=== PATIENT | male | born 2000 | race Caucasian/White ===

== ENCOUNTER → 2020-04-17 | Emergency (ER) | payer OTHER ==
--- NOTE | 2020-04-17 15:35 | RAD ---
TWO VIEWS RIGHT HUMERUS: Date: 04-17-2020 Comparison: None History: Injury, trauma, pain. FINDINGS: There is an obliquely oriented fracture involving the mid shaft of the right humerus. The distal frac ture fragment demonstrates medial displacement by approximately 1.5 cm. There is posterior angulation . There is approximately 2 cm of overriding. IMPRESSION: Obliquely oriented displaced and angulated fracture involving the mid shaft of the right humerus. POS: [facility]
--- NOTE | 2020-04-17 15:37 | RAD ---
FRONTAL RADIOGRAPH RIGHT HUMERUS: Date: 04-17-2020 Time: 4:45 a.m. History: Status post reduction FINDINGS: There is an obliquely oriented midshaft right humerus fracture. There is no residual angulation. Ther e is approximately 7 mm of medial displacement. The distal right humerus is not imaged on this exam. IMPRESSION: Fracture of the right humerus as above. POS: [facility]
== END ==
LOC: ERS 03:07
DX: S42.301A Unspecified fracture of shaft of humerus, right arm, initial encounter for closed fracture (principal); W01.0XXA Fall on same level from slipping, tripping and stumbling without subsequent striking against object, initial encounter
CPT/HCPCS: 24505